=== PATIENT | female | born 2005 | race African-American/Black ===

== ENCOUNTER 2025-03-25 19:37 | Inpatient (IN) | payer SELFPAY ==
[~2025-03-25] VITALS: Ht 162.6 cm; Wt 59.9 kg
[2025-03-25 08:41] VITALS: BP 115/60; PULSE 93; RESP 18; TEMP 36.5; O2SAT 93
[2025-03-25 19:43] VITALS: O2SAT 96
[2025-03-25] MEDS ORDERED: LORAZEPAM 2MG/ML INJ IV STA (19:50)
[2025-03-25] MEDS: LORAZEPAM 2MG/ML UD SYRINGE IV NR (20:11)
[2025-03-25] MEDS: OLANZAPINE 10 MG/VIAL IM STA (20:15)
[2025-03-25] MEDS: MIDAZOLAM HCL 2 MG/2 ML VIAL IV ONE (20:55)
[2025-03-25 21:24] LABS: BASOPHILS % 0.6 % (0.0-2.0); DIFFERENTIAL COMMENT 0; EOSINOPHILS % 0.9 % (0.0-5.0); HEMATOCRIT. 32.4 % (36.0-48.0); LYMPHOCYTES % 16.5 % (20.0-50.0); MEAN CORPUSCULAR HEMOGLOBIN 25.6 pg (28.0-32.0); MEAN CORPUSCULAR HGB CONC 33.9 g/dL (31.0-37.0); MEAN CORPUSCULAR VOLUME 75.6 fL (81.0-99.0); MEAN PLATELET VOLUME 8.2 fl (7.4-10.4); MONOCYTES % 6.3 % (2.0-8.0); NEUTROPHILS % 75.7 % (40.0-76.0); PLATELET 294 x1000/uL (130-400); RED BLOOD CELL COUNT 4.28 mill/uL (4.2-5.4); RED CELL DISTRIBUTION WIDTH 15.7 % (11.6-14.6); WHITE BLOOD COUNT 7.1 x1000/uL (4.5-11.0)
[2025-03-25 21:34] LABS: CHLORIDE 107 mEq/L (98-107); POTASSIUM 3.7 mEq/L (3.5-5.1); SODIUM 138 mEq/L (136-145)
[2025-03-25 21:35] LABS: CALCIUM 8.5 mg/dL (8.7-10.4); CARBON DIOXIDE 21 mEq/L (21-32)
[2025-03-25 21:40] LABS: CREATININE 0.8 mg/dL (0.6-1.0); ETHANOL BLOOD 259 mg/dL (<10); GLUCOSE 107 mg/dL (70-105); UREA NITROGEN BLOOD 12 mg/dL (9-23)
[2025-03-25 21:42] LABS: ACETAMINOPHEN < 2 ug/mL (10-30)
[2025-03-25 21:43] LABS: HCG SCREEN NEGATIVE
[2025-03-26 08:40] VITALS: BP 105/60; PULSE 93; RESP 18; TEMP 36.5
[2025-03-26] MEDS ORDERED: ACETAMINOPHEN 325MG TABLET PO PRN ×2 (09:30)
[2025-03-26] MEDS ORDERED: GUAIFENESIN 200MG/10ML SUGAR FREE UDC PO PRN (09:30)
[2025-03-26] MEDS ORDERED: IPRATROPIUM/ALBUTEROL 0.5-3(2.5)MG/3ML NEB HHN PRN (09:30)
[2025-03-26] MEDS ORDERED: DOCUSATE SODIUM 100MG CAPSULE PO PRN (09:30)
[2025-03-26] MEDS ORDERED: CLONIDINE 0.1MG TABLET PO PRN (09:30)
[2025-03-26] MEDS ORDERED: MAGNESIUM/ALUMINUM HYDROXIDE/SIMETHICONE 30ML UDC PO PRN (09:30)
[2025-03-26] MEDS ORDERED: ONDANSETRON HCL 4MG/2ML INJ IV PRN (09:30)
[2025-03-26] MEDS ORDERED: LORAZEPAM 2MG/ML UD SYRINGE IV PRN ×2 (10:15)
[2025-03-26 12:00] VITALS: BP 94/61; PULSE 87; RESP 18; TEMP 36.5; O2SAT 93
[2025-03-26] MEDS ORDERED: THIAMINE HCL 100 MG in SODIUM CHLORIDE 0.9% 49 ML IV SCH (12:00)
[2025-03-26] MEDS: DEXTROSE 5% WATER 1,000 ML IV SCH (12:08)
[2025-03-26] MEDS: THIAMINE HCL 100 MG/1 ML 2ML VIAL IM NR (12:08)
[2025-03-26] MEDS: MULTIVITAMINS,THER W-MINERALS TABLET PO SCH (12:10)
[2025-03-26] MEDS: FOLIC ACID 1MG TABLET PO SCH (12:10)
[2025-03-26] MEDS: PANTOPRAZOLE SODIUM 40 MG/VIAL IV SCH (14:29)
[2025-03-26] MEDS: MAGNESIUM 2 G PREMIX 50 ML IV NR (14:30)
[2025-03-26 16:00] VITALS: BP 106/72; PULSE 83; RESP 18; TEMP 36.3; O2SAT 100
[2025-03-26 16:18] LABS: IRON 21 ug/dL (50-170)
[2025-03-26 16:21] LABS: TOTAL IRON BINDING CAPACITY 239 ug/dl (250-425)
[2025-03-26] MEDS: BLOOD SUGAR DIAGNOSTIC STRIP TEST SCH (16:45)
[2025-03-26] MEDS: DEXTROSE 50% WATER 50ML SYRINGE IV PRN (17:59)
[2025-03-27] MEDS ORDERED: THIAMINE HCL 100 MG/1 ML 2ML VIAL IM SCH (09:00)
[2025-03-30] MEDS ORDERED: THIAMINE HCL 100MG TABLET PO SCH (09:00)
== END 2025-03-26 19:50 | disposition left against medical advice (07) | DRG 812 ==
LOC: ER 19:37 → 5WST 21:57 → EDBEDREQ 22:02 → EDBEDREQTM 22:02 → ENRESERV 03-26 08:11
PROVIDERS: ADMIT Internal Medicine; ATTEND Internal Medicine
DX: T40.991A Poisoning by other psychodysleptics [hallucinogens], accidental (unintentional), initial encounter (principal); D64.9 Anemia, unspecified; E83.42 Hypomagnesemia; S00.31XA Abrasion of nose, initial encounter; X58.XXXA Exposure to other specified factors, initial encounter; Z53.29 Procedure and treatment not carried out because of patient's decision for other reasons; E87.6 Hypokalemia; D72.810 Lymphocytopenia; F10.929 Alcohol use, unspecified with intoxication, unspecified; Y90.9 Presence of alcohol in blood, level not specified; Z79.899 Other long term (current) drug therapy; Z78.1 Physical restraint status; Y93.89 Activity, other specified; Y92.89 Other specified places as the place of occurrence of the external cause; Y99.8 Other external cause status
CPT/HCPCS: 36415; 80048; 80307; 80320; 80329; 82962; 83540; 83550; 83735; 84100; 84703; 85025; 99291; A4606; J2060; J2250; J2470; J3411; J3475; J3490; J7070; G0480